=== PATIENT | male | born 1980 | race Caucasian/White ===

== ENCOUNTER 2020-05-10 00:42 | Emergency (ER) | payer BC, OTHER ==
[2020-05-10] MEDS ORDERED: RINGERS SOLUTION,LACTATED 1,000 ML IV ONE (00:56)
--- NOTE | 2020-05-10 00:56 | ER Document Report ---
ED General - General Chief Complaint: Altered Mental Status Stated Complaint: ALTERED MENTAL STATUS Time Seen by Provider: 05/10/20 00:48 Notes: 39-year male presents with altered mental status. [place] and having edible marijuana unknown last ingestion time but arrives responsive to stimuli but nonverbal mildly tachycardic, but not hot. He cannot give a history. Glucose normal got fluids from EMS. Past Medical History - General Cannot obtain history due to: Intoxicated - Social History Smoking Status: Never Smoker Family History: None Review of Systems - Review of Systems Notes: REVIEW OF SYSTEMS Mental status PHYSICAL EXAMINATION General: No acute distress, well-nourished Head: Atraumatic, normocephalic ENT: Mouth normal, oropharynx moist, no exudates or tonsillar enlargement Eyes: Reactive pupils 8 mm bilaterally. Tracks objects with eyes. Neck: No JVD, supple, no guarding CVS: Normal rate, regular rhythm, no murmurs Resp: No resp distress, equal and normal breath sounds bilaterally GI: Nondistended, soft, no tenderness to palpation, no rebound or guarding Ext: No deformities, no edema, normal range of motion in upper and lower ext Back: No CVA or midline TTP Skin: No rash, warm. Axilla dry bilaterally. Lymphatic: No lymphadeopathy noted Neuro: With eyes open. Response to voice by tracking and looking at me but refuses to speak. Will not follow commands but localizes pain. Physical Exam - Vital signs Vitals: Temp 97.7 F 05/10/20 01:01 Course - Re-evaluation Re-evalutation: 05/10/20 02:58 Patient presents with confusion in the setting of marijuana edibles and alcohol. Initially cannot give a history. Reassessed at 3:00. Labs showed leukocytosis and mild dehydration but no rhabdo Has been given fluids. I reassessed him at 2:45 AM and is able to have a conversation. He says he ate at least one marijuana chocolate bar of an unknown dose. He feels much better now but I think he is stable for discharge. He was counseled on alcohol and marijuana use. I have discussed with the patient there likely diagnosis, aftercare plan, follow-up plans and my usual and customary return precautions. They verbalized understanding of this. - Vital Signs Vital signs: Temp Pulse Resp BP Pulse Ox 97.7 F 05/10/20 01:01 - Laboratory Result Diagrams: 05/10/20 00:56 05/10/20 00:56 Laboratory results interpreted by me: 05/10/20 05/10/20 00:56 00:56 WBC 12.2 H RBC 3.95 L Hgb 12.9 L Hct 37.4 L Absolute Neuts (auto) 8.5 H Sodium 134.4 L Glucose 160 H Discharge - Discharge Clinical Impression: Intoxication Condition: Good Disposition: HOME, SELF-CARE Instructions: Acute Alcohol Intoxication ([facility]), Drug Toxicity ([facility])
[2020-05-10 01:10] LABS: ABSOLUTE BASOPHILS # (AUTO) 0.1 10^3/uL (0.0-0.2); ABSOLUTE EOSINOPHILS # (AUTO) 0.1 10^3/uL (0.0-0.6); ABSOLUTE LYMPHOCYTES (AUTO) 2.7 10^3/uL (0.5-4.7); ABSOLUTE MONOCYTES (AUTO) 0.8 10^3/uL (0.1-1.4); ABSOLUTE NEUT (AUTO) 8.5 10^3/uL (1.7-8.2); BASOPHILS % (AUTO) 0.7 % (0-2); EOSINOPHILS % (AUTO) 1.1 % (0-6); HEMATOCRIT 37.4 % (37.9-51.0); HEMOGLOBIN 12.9 g/dL (13.5-17.0); LYMPHOCYTES % (AUTO) 22.4 % (13-45); MEAN CORPUSCULAR HEMOGLOBIN 32.6 pg (27.0-33.4); MEAN CORPUSCULAR HGB CONC 34.4 g/dL (32.0-36.0); MEAN CORPUSCULAR VOLUME 95 fl (80-97); MONOCYTES % (AUTO) 6.2 % (3-13); PLATELET COUNT 299 10^3/uL (150-450); RED BLOOD COUNT 3.95 10^6/uL (4.35-5.55); RED CELL DISTRIBUTION WIDTH 13.1 % (11.5-14.0); SEGMENTED NEUTROPHILS % (AUTO) 69.6 % (42-78); TOTAL CELLS COUNTED % (AUTO) 100 %; WHITE BLOOD COUNT 12.2 10^3/uL (4.0-10.5)
[2020-05-10 01:23] LABS: ANION GAP 7 (5-19); BLOOD UREA NITROGEN 18 mg/dL (7-20); CALCIUM 8.7 mg/dL (8.4-10.2); CARBON DIOXIDE 24 mmol/L (22-30); CHLORIDE 103 mmol/L (98-107); CREATINE KINASE 158 U/L (55-170); GLUCOSE 160 mg/dL (75-110); POTASSIUM 4.1 mmol/L (3.6-5.0)
[2020-05-10 02:58] VITALS: BP 142/84
[2020-05-10 03:20] LABS: URINE AMPHETAMINES SCREEN NEGATIVE; URINE BARBITURATES SCREEN NEGATIVE; URINE BENZODIAZEPINES SCREEN NEGATIVE; URINE COCAINE SCREEN NEGATIVE; URINE METHADONE SCREEN NEGATIVE; URINE PHENCYCLIDINE SCREEN NEGATIVE
[2020-05-10 03:22] LABS: URINE MARIJUANA (THC) SCREEN UNCONFIRMED POSITIVE
== END 2020-05-10 04:05 | disposition home or self-care (01) ==
LOC: ER 00:42
DX: F10.129 Alcohol abuse with intoxication, unspecified (principal); F12.929 Cannabis use, unspecified with intoxication, unspecified; R00.0 Tachycardia, unspecified; R41.82 Altered mental status, unspecified
CPT/HCPCS: 99285; 96360; 36415; 82553; 82550; 85025; 80048; 80307; J7120